=== PATIENT | female | born 1985 | race Caucasian/White ===

== ENCOUNTER 2016-08-31 20:55 | Emergency (ER) | payer OTHER ==
[~2016-08-31] VITALS: Ht 160 cm; Wt 108.9 kg
--- NOTE | 2016-08-31 21:27 | ED CARDIAC/CP/PALPITATIONS ---
History of Present Illness General Chief Complaint: Chest Pain Stated Complaint: CHEST PAIN Source: patient, family Exam Limitations: no limitations Vital Signs & Intake/Output Vital Signs & Intake/Output Vital Signs Date Time Temp Pulse Resp B/P Pulse O2 O2 Flow FiO2 Ox Delivery Rate 08/31 2325 98.6 94 18 160/90 98 Room Air 08/313 161/92 08/318 161/99 08/31 2203 98 Room Air 08/31 2202 162/98 08/31 2152 162/98 08/310 98.2 107 20 160/104 98 Room Air ED Intake and Output 09/01 0000 08/31 1200 Intake Total Output Total Balance Patient 240 lb Weight Allergies Coded Allergies: metronidazole (Intermediate, SWELLING 08/31/16) Triage Note: RECEIVED 30 YO FEMALE C/O FEELING FLUTTERING IN CHEST, STARTED YESTERDAY. NO C/O SHARP PAIN, SOME PRESSURE. PT REPORTS BUTTERFLIES IN CHEST. NO C/O SOB Triage Nurses Notes Reviewed? yes : No Patient currently breastfeeds: No HPI: This patient is a 30-year-old female who presented to the emergency department today for evaluation of chest fluttering. The patient reported that her symptoms began yesterday while she was sitting down. She denied doing any strenuous activity. She reported that she fell intermittent nausea and fluttering and a pressure across her chest. She denied any radiation of the sensation. Intermittent in nature. The patient denied any visual changes, jaw pain, arm pain, numbness and tingling in her extremities, abdominal pain, vomiting, chest pain, or difficulty breathing. The patient did report that she has been diagnosed with hypertension and was started on hydrochlorothiazide, but stopped it because, "it didn't really work." She has not been taking the medication. (JAQUELINE JAEGER,HEIDE) Reconcile Medications Labetalol HCl 200 MG TABLET 1 TAB PO BID hypertension (GREGORIA MORAES,STEVAN Licea) Past History Travel History Traveled to [place] past 21 day No Medical History Any Pertinent Medical History? see below for history Neurological: NONE EENT: NONE Cardiovascular: NONE Respiratory: NONE Gastrointestinal: NONE Hepatic: NONE Renal: NONE Musculoskeletal: TORN ACL R KNEE Psychiatric: NONE Endocrine: NONE Tetanus Vaccine: 10/09/12 Surgical History Surgical History: non-contributory Psychosocial History What is your primary language [place]ian Tobacco Use: Never used Family History Hx Contributory? No (HEIDE PARSONS PA-C) Review of Systems Review of Systems Constitutional: Reports: no symptoms. EENTM: Reports: no symptoms. Respiratory: Reports: no symptoms. Cardiovascular: Reports: see HPI. GI: Reports: see HPI. Genitourinary: Reports: no symptoms. Musculoskeletal: Reports: no symptoms. Skin: Reports: no symptoms. Neurological/Psychological: Reports: no symptoms. All Other Systems: Reviewed and Negative (HEIDE PARSONS PA-C) Physical Exam Physical Exam Cardiovascular: TTACHYCARDIC WITH A REGULAR RHYTHM. nO MURMURS, RUBS, OR GALLOPS. nO CAROTID BRUITS. nORMAL PERIPHERAL PULSES Comments: Well-developed well-nourished person who appears anxious HEENT: Normal EENT exam, head normocephalic, moist mucous membranes PERRLA bilaterally. No papilledema noted on funduscopic examination Nose is atraumatic. Neck: Supple, no lymphadenopathy Back: Normal gait. Normal inspection Respiratory: Chest nontender. No respiratory distress. Breath sounds clear to auscultation bilaterally Abdomen: Soft, nontender and nondistended Extremity: Normal and equal pulses. Neuro: Alert oriented x3, cranial nerves II through XII grossly intact. Skin: No appreciable rash on exposed skin, skin is warm and dry. Psych: Mood and affect is normal Core Measures ACS in differential dx? Yes Severe Sepsis Present: No Septic Shock Present: No (HEIDE PARSONS PA-C) Progress Differential Diagnosis: AMI, aortic dissection, atrial fibrillation, cholecystitis, CHF/pulm edema, costochondritis, hyperkalemia, hyperthyroid, hyperventilation, musculoskeletal pain, myocarditis, pancreatitis, pericarditis, pneumonia, pneumothorax, PSVT, pulmonary embolism, PUD/GERD, PVCs/PACs, unstable angina, HYPERTENSION Plan of Care: Orders Procedure Date/time Status THYROID STIMULATING HORMONE 08/31 2117 Complete TROPONIN LEVEL 08/31 2117 Complete HUMAN BETA HCG SCREEN 08/31 2117 Complete FREE T4 08/31 2117 Complete D-DIMER 08/31 2117 Complete COMPREHENSIVE METABOLIC PANEL 08/31 2117 Complete CBC WITHOUT DIFFERENTIAL 08/31 2117 Complete EKG 08/31 2058 Active Laboratory Tests 08/31/162134: Anion Gap 11, Estimated GFR > 60, BUN/Creatinine Ratio 12.2, Glucose 114 H, Calcium 9.4, Total Bilirubin 0.4, AST 41 H, ALT 66 H, Alkaline Phosphatase 66, Troponin I < 0.01, Total Protein 7.5, Albumin 4.3, Globulin 3.2, Albumin/ Globulin Ratio 1.3, TSH 0.946, Free T4 1.34, Total Beta HCG NEGATIVE, D-Dimer < 200, CBC w Diff NO MAN DIFF REQ, RBC 4.42, MCV 84.4, MCH 27.8, RDW 14.6 H, MPV 10.4, Gran % 64.4, Lymphocytes % 27.3, Monocytes % 6.4, Eosinophils % 1.2, Basophils % 0.7, Absolute Granulocytes 6.2, Absolute Lymphocytes 2.6, Absolute Monocytes 0.6, Absolute Eosinophils 0.1, Absolute Basophils 0.1, PUBS MCHC 33.0 Diagnostic Imaging: Viewed by Me: Radiology Read. Discussed w/RAD: Radiology Read. CXR Impression: PATIENT: ESTELLE LÓPEZ PRESENT AGE: 30 PATIENT ACCOUNT NO: [id number] : 87 LOCATION: [facility] ORDERING PHYSICIAN: HEIDE PARSONS PA-C SERVICE DATE: 08/31/16 EXAM TYPE: RAD - XRY-CHEST XRAY, PA AND LATERAL EXAMINATION: XR CHEST CLINICAL INFORMATION: Chest pressure. Evaluate for pneumonia and cardiomegaly. COMPARISON: None. TECHNIQUE: PA and lateral views of the chest were obtained. FINDINGS: The lungs are hypoinflated but otherwise clear without focal airspace consolidation. No pleural effusions or pneumothoraces are identified. There is mild prominence of the cardiac silhouette. Mediastinal contours are within normal limits. Soft tissues are unremarkable. No acute osseous abnormality is identified. IMPRESSION: No acute pulmonary abnormality. Mild prominence of the cardiac silhouette. This finding is nonspecific and may represent a true finding or may be secondary to accentuation of the cardiac silhouette given pulmonary hypoinflation on PA view of the chest. DICTATED BY: ISELA DALTON MD DATE/TIME DICTATED:08/31/162234 ARBORIST:ERNIE DATE/TIME TRANSCRIBED:08/31/162234 CONFIDENTIAL, DO NOT COPY WITHOUT APPROPRIATE AUTHORIZATION. <Electronically signed in Other Vendor System> SIGNED BY: ISELA DALTON MD 08/31/16 3994 Initial ED EKG: normal axis, normal intervals, no ST T wave changes, SINUS TACHYCARDIA, 107 BPM Comments: 08/31/2016 11:10:13 PM: Discussed with this patient and the importance of getting a primary care physician. I personally to registration who will have [facility] call this patient in the morning to set her up with primary care physician appointment. In the plan. She'll be started on outpatient antihypertensive. The patient reports that her symptoms have resolved. (HEIDE PARSONS PA-C) Departure Departure Disposition: HOME OR SELF CARE Condition: Stable Clinical Impression Primary Impression: Hypertension Qualifiers: Hypertension type: unspecified secondary hypertension Qualified Code: I15.9 - Secondary hypertension, unspecified Referrals: PATIENT HAS NO PRIMARY CARE DR (PCP/Family) Additional Instructions: As discussed, you will receive a call in the next 2 days from [facility] to be set up with a primary care physician and an appointment to be made. Please take the medication prescribed to you add directed. Return to the emergency department for any worsening symptoms or concerns. Departure Forms: Customer Survey General Discharge Information Prescriptions: Current Visit Scripts Labetalol HCl 1 TAB PO BID #14 TAB (HEIDE PARSONS PA-C) PA/LOAD OUT PERSON Co-Sign Statement Statement: ED Attending supervision documentation- [] I saw and evaluated the patient. I have also reviewed all the pertinent lab results and diagnostic results. I agree with the findings and the plan of care as documented in the PA's/LOAD OUT PERSON's documentation. [x] I have reviewed the ED Record and agree with the PA's/LOAD OUT PERSON's documentation. [] Additions or exceptions (if any) to the PAs/LOAD OUT PERSON's note and plan are summarized below: [] (GREGORIA MORAES,STEVAN Licea) Critical Care Note Critical Care Note Critical Care Time: non-applicable (HEIDE PARSONS PA-C)
[2016-08-31 21:46] LABS: ABSOLUTE BASOPHIL COUNT 0.1 /CUMM (0.0-0.2); ABSOLUTE EOSINOPHIL COUNT 0.1 /CUMM (0.0-0.7); ABSOLUTE GRANULOCYTE CT 6.2 /CUMM (1.4-6.5); ABSOLUTE LYMPH COUNT 2.6 /CUMM (1.2-3.4); ABSOLUTE MONOCYTE COUNT 0.6 /CUMM (0.10-0.60); BASOPHIL % 0.7 % (0.0-2.0); EOSINOPHIL % 1.2 % (0-5); GRANULOCYTE % 64.4 % (42.2-75.2); HEMATOCRIT 37.3 % (37-47); MEAN CORPUSCULAR HGB 27.8 PG (27.0-31.0); MEAN CORPUSCULAR VOLUME 84.4 FL (81.0-99.0); MEAN PLATELET VOLUME 10.4 FL (7.4-10.4); PLATELET COUNT 243 /CUMM (130-400); RBC DISTRIBUTION WIDTH 14.6 % (11.5-14.5); RED BLOOD CELL CT 4.42 /CUMM (4.20-5.40); WHITE BLOOD CELL COUNT 9.7 /CUMM (4.8-10.8)
--- NOTE | 2016-08-31 22:53 | RADIOLOGY REPORT ---
EXAMINATION: XR CHEST CLINICAL INFORMATION: Chest pressure. Evaluate for pneumonia and cardiomegaly. COMPARISON: None. TECHNIQUE: PA and lateral views of the chest were obtained. FINDINGS: The lungs are hypoinflated but otherwise clear without focal airspace consolidation. No pleural effusions or pneumothoraces are identified. There is mild prominence of the cardiac silhouette. Mediastinal contours are within normal limits. Soft tissues are unremarkable. No acute osseous abnormality is identified. IMPRESSION: No acute pulmonary abnormality. Mild prominence of the cardiac silhouette. This finding is nonspecific and may represent a true finding or may be secondary to accentuation of the cardiac silhouette given pulmonary hypoinflation on PA view of the chest.
[2016-08-31] MEDS ORDERED: LABETALOL HCL200 M1 PO (23:12)
[2016-08-31 23:25] VITALS: BP 160/90
== END 2016-08-31 23:27 ==
LOC: ERH 20:55
PROVIDERS: Physician Assistant
DX: I10 Essential (primary) hypertension (principal); I49.8 Other specified cardiac arrhythmias; R11.0 Nausea
CPT/HCPCS: 93005; 93010